=== PATIENT | male | born 1975 | race Caucasian/White ===

== ENCOUNTER 2021-08-04 15:16 | Outpatient (CLI) | payer OTHER, SELFPAY ==
--- NOTE | ~2021-08-04 | US_ITS ---
EXAMINATION: US scrotum doppler DATE: 08/04/2021 16:01 INDICATION: Hydrocele TECHNIQUE: Testicular sonogram utilizing grayscale and Doppler COMPARISON: None. FINDINGS: The right testis measures 5.2 x 2.5 x 2.7 cm. The left testis measures 4.8 x 2.2 x 2.6 cm. Multiple t iny echogenic foci within both testes consistent with testicular microlithiasis. Otherwise symmetric normal grayscale appearance to both testes. There is normal vascular flow to both testes. The right e pididymis is normal with normal vascular flow. The left epididymis is normal with normal vascular adolfo w. Small bilateral hydroceles, right greater than left. No varicocele. IMPRESSION: 1. Small bilateral hydroceles, right greater than left. 2. Mild bilateral testicular microlithiasis. Reviewed, dictated and finalized at location A.
== END 2021-08-04 15:17 | disposition home or self-care (01) ==
PROVIDERS: Visit Provider Urology
DX: N43.3 Hydrocele, unspecified (principal)
CPT/HCPCS: 76870; 93976